=== PATIENT | male | born 1975 | race Caucasian/White ===

== ENCOUNTER 2017-11-24 10:45 | Emergency (ER) | payer SELFPAY ==
[2017-11-24 11:07] VITALS: BP 103/60; PULSE 79; TEMP 98.9; BMI 24.5
--- NOTE | 2017-11-24 11:49 | PDOC ---
History of Present Illness - General Chief Complaint: Back Pain Stated Complaint: BACK PAIN Time Seen by Provider: 11/24/17 11:23 - History of Present Illness Initial Comments: 42-year-old male presents for evaluation of ongoing lower back pain. He was treated in the ER with Motrin and Percocet with minimal relief. He continues to have lower back pain with left anterior leg radicular symptoms. He denies loss of bowel bladder function or saddle paresthesias. 11/24/17 11:45 Past History - Past Medical History Allergies/Adverse Reactions: Allergies Allergy/AdvReac Type Severity Reaction Status Date / Time No Known Allergies Allergy Verified 11/24/17 11:03 Home Medications: Ambulatory Orders Cyclobenzaprine HCl [Flexeril 10 mg] 10 mg PO HS PRN #10 tablet 11/24/17 Methylprednisolone [Medrol Dose Shoaib] 4 mg PO ASDIR #21 tablet 11/24/17 COPD: No - Suicide/Smoking/Psychosocial Hx Smoking History: Current some day smoker Information on smoking cessation initiated: No Review of Systems - Review of Systems Musculoskeletal: Yes: Back Pain All Other Systems: Reviewed and Negative *Physical Exam - Vital Signs Last Vital Signs Temp Pulse Resp BP Pulse Ox 98.9 F 79 18 103/60 99 11/24/17 11:03 11/24/17 11:03 11/24/17 11:03 11/24/17 11:03 11/24/17 11:03 - Physical Exam Comments: Bar spine skin color and temperature are normal. There is diffuse paralumbar musculature spasm and tenderness. Decreased range of motion. No midline tenderness. 5 out of 5 strength in bilateral lower extremities straight leg raise test. No gross sensorimotor deficits. He is neurovascularly intact. 11/24/17 11:46 Medical Decision Making - Medical Decision Making I will discontinue the Motrin start him on a Medrol Dosepak and Flexeril and have him follow up with spine surgery. 11/24/17 11:47 *DC/Admit/Observation/Transfer Diagnosis at time of Disposition: Lumbar strain - Discharge Dispostion Disposition: HOME Condition at time of disposition: Stable Decision to Admit order: No - Prescriptions Prescriptions: Cyclobenzaprine HCl [Flexeril 10 mg] 10 mg PO HS PRN #10 tablet PRN Reason: Muscle Spasms Methylprednisolone [Medrol Dose Shoaib] 4 mg PO ASDIR #21 tablet - Referrals Referrals: Anton Bailey MD [Staff Physician] - - Patient Instructions Printed Discharge Instructions: Low Back Pain, DI for Low Back Pain Additional Instructions: regresar a la isaak de emergencias si los sntomas empeoran o no se resuelven. Por favor detenga el ibuprofeno. [place] el paquete de esteroides segn las indicaciones. El relajante muscular es rayna tableta antes de acostarse. Te dafne dormir. Es muy importante que realice un seguimiento con la ciruga de la columna. Neelima rayna layla dentro de los prximos 1 a 2 garcia para obtener ms evaluaciones y opciones de tratamiento. Print Language: MAC[place]IAN - Post Discharge Activity
== END 2017-11-24 12:20 | disposition home or self-care (01) ==
LOC: JERFT 10:45
DX: S39.012A Strain of muscle, fascia and tendon of lower back, initial encounter (principal); X58.XXXA Exposure to other specified factors, initial encounter; Y93.89 Activity, other specified; Y92.89 Other specified places as the place of occurrence of the external cause
CPT/HCPCS: 99281-25